=== PATIENT | male | born 1970 | race Caucasian/White ===

== ENCOUNTER 2017-10-12 14:08 | Emergency (ER) | payer OTHER ==
[~2017-10-12] VITALS: Ht 180.3 cm; Wt 88.5 kg
[~2017-10-12 14:08] MED LIST: ADDERALL 20 MG20 MG PO; ALBUTEROL2.5 MG/31 INH; PREDNISONE 10 M10 M1 PO; ZPAK PO
[2017-10-12 14:25] VITALS: BP 144/78
[2017-10-12] MEDS ORDERED: DIFLUCAN150 M1 PO (14:29)
== END 2017-10-12 14:44 | disposition home or self-care (01) ==
LOC: M.ERS 14:08
DX: B35.4 Tinea corporis (principal)

== ENCOUNTER 2017-11-05 13:59 | Emergency (ER) | payer OTHER ==
[~2017-11-05] VITALS: Ht 180.3 cm; Wt 90.7 kg
[~2017-11-05 13:59] MED LIST changes: +DIFLUCAN150 M1 PO
[2017-11-05 14:04] VITALS: BP 118/73
[2017-11-05] MEDS ORDERED: ONMEL200 MG PO (14:12)
== END 2017-11-05 14:16 | disposition home or self-care (01) ==
LOC: M.ERS 13:59
DX: M79.642 Pain in left hand (principal); Z76.0 Encounter for issue of repeat prescription; F17.210 Nicotine dependence, cigarettes, uncomplicated

== ENCOUNTER 2017-12-16 17:38 | Emergency (ER) | payer OTHER ==
[~2017-12-16] VITALS: Ht 180.3 cm; Wt 88.5 kg
[~2017-12-16 17:38] MED LIST changes: +ONMEL200 MG PO
[2017-12-16 18:25] LABS: ABSOLUTE BASOPHILS 0.2 thou/uL (0.0-0.2); ABSOLUTE EOSINOPHILS 0.8 thou/uL (0.0-0.7); ABSOLUTE MONOCYTES 0.5 thou/uL (0.0-1.2); ABSOLUTE NEUTROPHILS 4.3 thou/uL (1.6-8.1); BASOPHILS 1.6 %; HEMATOCRIT 43.3 % (42.0-52.0); HEMOGLOBIN 14.3 gm/dL (14.0-18.0); LYMPHOCYTES 40.9 %; MCH 28.7 pg (26.0-34.0); MCV 86.8 fL (80.0-100.0); MONOCYTES 5.4 %; MPV 8.2 fl. (7.2-11.1); NUCLEATED RBCS 0 /100WBC; PLATELET COUNT* 228 thou/uL (150-400); POLYS 44.1 %; RBC 4.99 mil/uL (4.50-6.00); RDW-CV 13.6 % (10.5-14.5); WBC 9.7 thou/uL (4.0-11.0)
[2017-12-16 18:32] LABS: CALCIUM 7.2 mg/dL (8.5-10.1); POTASSIUM 3.6 mmol/L (3.5-5.1)
[2017-12-16 18:37] LABS: ALBUMIN 3.3 g/dL (3.4-5.0); TOTAL BILIRUBIN 0.2 mg/dL (<0.1-1.0); TOTAL PROTEIN 6.6 g/dL (6.4-8.2); URIC ACID* 6.5 mg/dL (2.6-7.2)
[2017-12-16] MEDS ORDERED: NAPROSYN500 MG PO (18:53)
[2017-12-16] MEDS ORDERED: TERBINAFINE HC250 MG PO (18:53)
[2017-12-16 19:04] VITALS: BP 114/71
== END 2017-12-16 19:05 | disposition home or self-care (01) ==
LOC: M.ERS 17:38
PROVIDERS: Nurse Practitioner Family
DX: B35.1 Tinea unguium (principal); M25.462 Effusion, left knee

== ENCOUNTER 2018-04-04 00:34 | Emergency (ER) | payer OTHER ==
[~2018-04-04] VITALS: Ht 180.3 cm; Wt 90.7 kg
[~2018-04-04 00:34] MED LIST changes: +NAPROSYN500 MG PO; +TERBINAFINE HC250 MG PO
[2018-04-04 01:32] LABS: URINE BILIRUBIN NEGATIVE (Negative); URINE BLOOD TRACE (Negative); URINE CLARITY CLEAR; URINE COLOR YELLOW; URINE GLUCOSE-RANDOM NEGATIVE (Negative); URINE KETONES NEGATIVE (Negative); URINE NITRITE-REFLEX NEGATIVE (Negative); URINE PROTEIN NEGATIVE (Negative); URINE SPECIFIC GRAVITY >= 1.030 (1.005-1.030)
[2018-04-04 01:45] LABS: URINE LEUKOCYTES-REFLEX 2+ (Negative)
[2018-04-04] MEDS ORDERED: CIPROFLOXACIN500 M1 PO (01:48)
[2018-04-04] MEDS ORDERED: PYRIDIUM200 MG PO (01:48)
[2018-04-04 01:50] VITALS: BP 0/0
[2018-04-04 01:53] LABS: CASTS None Seen /LPF (None Seen); SQUAMOUS NONE SEEN /LPF (0-3)
[2018-04-04 01:54] LABS: CRYSTALS None Seen /LPF (None Seen); URINE RBC None Seen /HPF (0-2); URINE WBC-REFLEX >25 Many /HPF (0-5)
== END 2018-04-04 01:50 | disposition home or self-care (01) ==
LOC: M.ERS 00:34
PROVIDERS: Emergency Medicine
DX: N39.0 Urinary tract infection, site not specified (principal)

== ENCOUNTER 2021-03-29 19:11 | Emergency (ER) | payer OTHER ==
[~2021-03-29] VITALS: Ht 180.3 cm; Wt 90.7 kg
[~2021-03-29 19:11] MED LIST changes: +CIPROFLOXACIN500 M1 PO; +PYRIDIUM200 MG PO
[2021-03-29] MEDS ORDERED: CEPHALEXIN500 MG PO (19:56)
[2021-03-29] MEDS ORDERED: BACTRIM DS TAB1 EAC1 PO (19:56)
[2021-03-29 19:59] VITALS: BP 134/96
== END 2021-03-29 20:00 | disposition home or self-care (01) ==
LOC: M.ERS 19:11
DX: L03.011 Cellulitis of right finger (principal); Z98.890 Other specified postprocedural states

== ENCOUNTER 2021-05-01 17:07 | Emergency (ER) | payer OTHER ==
[~2021-05-01] VITALS: Ht 180.3 cm; Wt 90.7 kg
[~2021-05-01 17:07] MED LIST changes: +BACTRIM DS TAB1 EAC1 PO; +CEPHALEXIN500 MG PO
[2021-05-01 17:22] VITALS: BP 136/87
[2021-05-01] MEDS ORDERED: MUPIROCIN22 GM TOP (18:28)
[2021-05-01] MEDS ORDERED: CEPHALEXIN500 MG PO (18:28)
== END 2021-05-01 18:34 | disposition home or self-care (01) ==
LOC: M.ERS 17:07
DX: L08.9 Local infection of the skin and subcutaneous tissue, unspecified (principal); F17.210 Nicotine dependence, cigarettes, uncomplicated; Z98.890 Other specified postprocedural states